=== PATIENT | male | born 1980 | race Caucasian/White ===

== ENCOUNTER 2018-06-16 17:47 | Emergency (ER) | payer OTHER ==
[2018-06-16 18:06] VITALS: BP 147/90
[2018-06-16] MEDS ORDERED: HYDROCODONE/ACETAMINOPHEN 5-325 MG (6 TAB/ER DISP) PO PRN (18:32)
[2018-06-16] MEDS ORDERED: IBUPROFEN 800 MG TABLET PO ONE (18:32)
[2018-06-16] MEDS ORDERED: LIDOCAINE 5% (700 MG) TRANSDERMAL ADH..PATCH TP ONE (18:36)
--- NOTE | 2018-06-16 18:37 | ER Document Report ---
HPI - HPI Patient complains to provider of: Left upper extremity pain Onset: Other - Chronic, worse over the past month Onset/Duration: Worse Quality of pain: Sharp Pain Level: 4 Context: Patient states that he has a history of a vascular injury to the left axillary artery one year ago. Patient has had surgical repair. Patient states that he had been taking gabapentin for chronic nerve pain but ran out of the medication 1 month ago. Patient is having difficulty getting a follow-up appointment with her primary doctor due to issues with Workmen's Compensation. Patient denies any new injury. Associated Symptoms: Other - Left upper arm pain Exacerbated by: Movement Relieved by: Denies Similar symptoms previously: Yes Recently seen / treated by doctor: No - ROS ROS below otherwise negative: Yes Systems Reviewed and Negative: Yes All other systems reviewed and negative - CONSTITUTIONAL Constitutional: DENIES: Fever - NEURO Neurology: DENIES: Headache, Weakness - RESPIRATORY Respiratory: DENIES: Trouble Breathing, Coughing - GASTROINTESTINAL Gastrointestinal: DENIES: Nausea - MUSCULOSKELETAL Musculoskeletal: REPORTS: Extremity pain, Back Pain - DERM Skin Color: Normal - Call for scrapes Skin Problems: None Past Medical History - General Information source: Patient - Social History Smoking Status: Current Every Day Smoker Smoking Education Provided: Yes Frequency of alcohol use: None Drug Abuse: None Occupation: None Lives with: Family Family History: Reviewed & Not Pertinent Musculoskeletal Medical History: Reports Other - Chronic left arm pain Past Surgical History: Reports: Hx Orthopedic Surgery, Hx Vascular Surgery Vertical Provider Document - CONSTITUTIONAL Agree With Documented VS: Yes Exam Limitations: No Limitations General Appearance: WD/WN, No Apparent Distress - INFECTION CONTROL TRAVEL OUTSIDE OF THE [place]. IN LAST 30 DAYS: No - HEENT HEENT: Atraumatic, Normocephalic - NECK Neck: Normal Inspection, Supple. negative: Lymphadenopathy-Left, Lymphadenopathy-Right - RESPIRATORY Respiratory: Breath Sounds Normal, No Respiratory Distress - CARDIOVASCULAR Cardiovascular: Regular Rate, Regular Rhythm Pulses: Normal: Radial - BACK Back: Abnormal Inspection - Left trapezius muscle tenderness with spasm - MUSCULOSKELETAL/EXTREMETIES Musculoskeletal/Extremeties: MAEW - NEURO Level of Consciousness: Awake, Alert, Appropriate Motor/Sensory: No Motor Deficit - DERM Integumentary: Warm, Dry, No Rash Course - Re-evaluation Re-evalutation: 06/16/18 18:[address] Ring regarding patient presentation and diagnostic evaluation. No additional imaging advised. Recommends treating pain symptoms. Patient with good radial pulse to left upper extremity. Normal skin color and temperature to extremity, no concern for any vascular compromise. Patient with increased pain once he raises his left upper extremity above his head. Patient able to lift arm to 90 without difficulty. - Vital Signs Vital signs: Temp Pulse Resp BP Pulse Ox 99.2 F 59 L 16 147/90 H 99 06/16/18 18:05 06/16/18 18:05 06/16/18 18:05 06/16/18 18:05 06/16/18 18:05 Discharge - Discharge Clinical Impression: Chronic pain Qualifiers: Chronic pain type: other chronic pain Qualified Code(s): G89.29 - Other chronic pain Trapezius strain Qualifiers: Encounter type: initial encounter Laterality: left Qualified Code(s): S46.812A - Strain of other muscles, fascia and tendons at shoulder and upper arm level, left arm, initial encounter Condition: Stable Disposition: HOME, SELF-CARE Instructions: Chronic Pain Control ([facility]), Muscle Strain ([facility]) Additional Instructions: Return immediately for any new or worsening symptoms Followup with your primary care provider, call tomorrow to make a followup appointment Prescriptions: Gabapentin 300 mg PO TID #20 capsule Naproxen [Naprosyn 250 Nmg Tablet] 1 tab PO BID #14 tablet Forms: Smoking Cessation Education Referrals: [facility] [Provider Group] - Follow up as needed
== END 2018-06-16 18:56 | disposition home or self-care (01) ==
LOC: ER 17:47
DX: S46.812A Strain of other muscles, fascia and tendons at shoulder and upper arm level, left arm, initial encounter (principal); X58.XXXA Exposure to other specified factors, initial encounter; G89.29 Other chronic pain; M79.622 Pain in left upper arm; M54.9 Dorsalgia, unspecified; F17.200 Nicotine dependence, unspecified, uncomplicated
CPT/HCPCS: 99283

== ENCOUNTER 2018-08-19 03:44 | Emergency (ER) | payer SELFPAY ==
[2018-08-19 03:49] VITALS: BP 162/98
[2018-08-19] MEDS ORDERED: KETOROLAC TROMETHAMINE 60 MG/2 ML SDV IM ONE (03:58)
--- NOTE | 2018-08-19 03:58 | ER Document Report ---
HPI - HPI Patient complains to provider of: Toothache Pain Level: 5 Context: Patient is a 37 mL presenting to the emergency room department complaining of a right upper tooth pain. Patient states the pain started a few hours ago. Patient states he has not taken any medication prior to arrival to relieve the pain. Patient states that is been over 20 years since he has seen a dentist. Patient denies any fever, chest pain, shortness of breath, nausea, vomiting, diarrhea. Past medical history: None Medications: None Allergies: None Patient admits to everyday cigarette use, occasional EtOH use, denies illicit drug use. Past Medical History - General Information source: Patient - Social History Smoking Status: Current Every Day Smoker Chew tobacco use (# tins/day): No Frequency of alcohol use: Occasional Drug Abuse: None Lives with: Family Family History: Reviewed & Not Pertinent Patient has suicidal ideation: No Patient has homicidal ideation: No Renal/ Medical History: Denies: Hx Peritoneal Dialysis Past Surgical History: Reports: Hx Orthopedic Surgery - back, Hx Vascular Surgery - l arm artery Vertical Provider Document - CONSTITUTIONAL Notes: GENERAL: Alert, interacts well. No acute distress. HEAD: Normocephalic, atraumatic. EYES: Pupils equal, round, and reactive to light. Extraocular movements intact. ENT: Oral mucosa moist, tongue midline. Obvious dental caries right upper teeth #1 and 2. No surrounding, erythema, fluctuance, induration. NECK: Full range of motion. Supple. Trachea midline. LUNGS: Clear to auscultation bilaterally, no wheezes, rales, or rhonchi. No respiratory distress. HEART: Regular rate and rhythm. No murmur ABDOMEN: Soft, non-tender. Non-distended. Bowel sounds present in all 4 quadrants. EXTREMITIES: Moves all 4 extremities spontaneously. No edema, normal radial and dorsalis pedis pulses bilaterally. No cyanosis. BACK: no cervical, thoracic, lumbar midline tenderness. No saddle anesthesia, normal distal neurovascular exam. NEUROLOGICAL: Alert and oriented x3. Normal speech. cranial nerves II through XII grossly intact. PSYCH: Normal affect, normal mood. SKIN: Warm, dry, normal turgor. No rashes or lesions noted. - INFECTION CONTROL TRAVEL OUTSIDE OF THE [place]. IN LAST 30 DAYS: No Course - Re-evaluation Re-evalutation: 08/19/18 03:57 We will treat patient with oral antibiotics and give phone numbers for dental clinic. Return precautions given. - Vital Signs Vital signs: Temp Pulse Resp BP Pulse Ox 97.8 F 54 L 162/98 H 99 08/19/18 03:45 08/19/18 03:45 08/19/18 03:45 08/19/18 03:45 Discharge - Discharge Clinical Impression: Toothache, Dental caries Condition: Stable Disposition: HOME, SELF-CARE Instructions: [facility], Penicillin V K ([facility]), Toothache ([facility]) Prescriptions: Penicillin V Potassium [Penicillin Vk 500 mg Tablet] 500 mg PO BID #20 tablet
== END 2018-08-19 04:20 | disposition home or self-care (01) ==
LOC: ER 03:44
DX: K02.9 Dental caries, unspecified (principal); K08.89 Other specified disorders of teeth and supporting structures; F17.210 Nicotine dependence, cigarettes, uncomplicated
CPT/HCPCS: 99282; 96372; J1885

== ENCOUNTER 2018-10-20 23:21 | Emergency (ER) | payer MEDICAID ==
[2018-10-21 00:05] VITALS: BP 150/74
== END 2018-10-21 01:18 | disposition left against medical advice (07) ==
LOC: ER 23:21
DX: Z53.21 Procedure and treatment not carried out due to patient leaving prior to being seen by health care provider (principal)

== ENCOUNTER 2018-10-23 15:57 | Emergency (ER) | payer MEDICAID ==
[2018-10-23 16:08] VITALS: BP 151/87
[2018-10-23] MEDS ORDERED: LIDOCAINE 2% VISCOUS SOLN 20 ML UDCUP PO ONE (16:43)
[2018-10-23] MEDS ORDERED: IBUPROFEN 600 MG TABLET PO ONE (16:43)
[2018-10-23] MEDS ORDERED: PENICILLIN V POTASSIUM 500 MG TABLET PO ONE (16:43)
--- NOTE | 2018-10-23 16:49 | ER Document Report ---
ED Oral Problem - General Chief Complaint: Toothache Stated Complaint: TOOTHACHE Time Seen by Provider: 10/23/18 16:26 Mode of Arrival: Ambulatory Information source: Patient Notes: 38-year-old male presented to ED for complaint of dental pain for 3 or 4 days. He states the tooth has been broken for more than a year. Patient states he took 3 Aleve this morning with little improvement. Patient is alert and nonlabored speaking in full sentences. Patient states he does smoke but has decreased the amount of cigarettes he smokes a day because of the pain that the smoking causes. Patient was instructed concerning the fact that he should not smoke at all while caring for a dental cavity. TRAVEL OUTSIDE OF THE [place] IN LAST 30 DAYS: No - HPI Patient complains to provider of: Toothache Onset: Other - 3-4 days Onset: Gradual Quality of pain: Throbbing Severity: Severe Pain Level: 5 Associated symptoms: Toothache Worsened by: Other - Smoking Relieved by: Nothing Similar symptoms previously: Yes Recently seen / treated by doctor/dentist: No - Related Data Allergies/Adverse Reactions: No Known Allergies Allergy (Unverified 06/16/18 17:51) Past Medical History - General Information source: Patient - Social History Smoking Status: Current Every Day Smoker Cigarette use (# per day): Yes - Half pack a day Smoking Education Provided: Yes - 4 minutes Frequency of alcohol use: None Drug Abuse: None Lives with: Spouse/Significant other Family History: Reviewed & Not Pertinent, Malignancy Patient has suicidal ideation: No Patient has homicidal ideation: No - Past Medical History Cardiac Medical History: Reports: None Pulmonary Medical History: Reports: None EENT Medical History: Reports: None Neurological Medical History: Reports: None Endocrine Medical History: Reports: None Renal/ Medical History: Reports: None Malignancy Medical History: Reports None GI Medical History: Reports: None Musculoskeletal Medical History: Reports Hx Musculoskeletal Trauma Skin Medical History: Reports None Psychiatric Medical History: Reports: None Traumatic Medical History: Reports: Hx Fractures - Back and finger Infectious Medical History: Reports: None Past Surgical History: Reports: Hx Orthopedic Surgery - back, Hx Vascular Surgery - l arm artery Review of Systems - Review of Systems Constitutional: No symptoms reported EENT: Mouth pain, Dental problem Cardiovascular: No symptoms reported Respiratory: No symptoms reported Gastrointestinal: No symptoms reported Genitourinary: No symptoms reported Male Genitourinary: No symptoms reported Musculoskeletal: No symptoms reported Skin: No symptoms reported Hematologic/Lymphatic: No symptoms reported Neurological/Psychological: No symptoms reported -: Yes All other systems reviewed and negative Physical Exam - Vital signs Vitals: Temp Pulse Resp BP Pulse Ox 98.7 F 64 18 151/87 H 95 10/23/18 16:06 10/23/18 16:06 10/23/18 16:06 10/23/18 16:06 10/23/18 16:06 Interpretation: Normal - General General appearance: Appears well, Alert - HEENT Head: Normocephalic, Atraumatic Eyes: Normal Pupils: PERRL Ears: Normal External canal: Normal Tympanic membrane: Normal Sinus: Normal Nasal: Normal Mouth/Lips: Caries Teeth diagram: 1 - Has been broken off for more than a year. Pain started 4 days ago. Patient does have mild swelling and redness of surrounding the tooth. Pharynx: Normal Neck: Normal - Respiratory Respiratory status: No respiratory distress Chest status: Nontender Breath sounds: Normal Chest palpation: Normal - Cardiovascular Rhythm: Regular Heart sounds: Normal auscultation Murmur: No - Abdominal Inspection: Normal Distension: No distension Bowel sounds: Normal Tenderness: Nontender Organomegaly: No organomegaly - Back Back: Normal, Nontender - Extremities General upper extremity: Normal inspection, Nontender, Normal color, Normal ROM, Normal temperature General lower extremity: Normal inspection, Nontender, Normal color, Normal ROM, Normal temperature, Normal weight bearing. No: Jarvis's sign - Neurological Neuro grossly intact: Yes Cognition: Normal Orientation: AAOx4 Jami Coma Scale Eye Opening: Spontaneous Jami Coma Scale Verbal: Oriented [place] Coma Scale Motor: Obeys Commands Jami Coma Scale Total: 15 Speech: Normal Motor strength normal: LUE, RUE, LLE, RLE Sensory: Normal - Psychological Associated symptoms: Normal affect, Normal mood - Skin Skin Temperature: Warm Skin Moisture: Dry Skin Color: Normal Course - Re-evaluation Re-evalutation: 10/23/18 16:55 Patient was treated with penicillin ibuprofen and viscous lidocaine. Presentation is most consistent with likely an infected tooth. Airway is patent. Vitals within normal limits. Patient is able swallow without any difficulty. There is no significant facial swelling. No evidence of Jeremy angina, apical abscess, or airway obstruction. Patient will be started on antibiotics. I've instructed to follow-up with dentistry as earliest ability for definitive management. At this time will discharge with return precautions and follow-up recommendations. Verbal discharge instructions given a the bedside and opportunity for questions given. Medication warnings reviewed. Patient is in agreement with this plan and has verbalized understanding of return precautions and the need for primary care follow-up in the next 24-72 hours. - Vital Signs Vital signs: Temp Pulse Resp BP Pulse Ox 98.7 F 64 18 151/87 H 95 10/23/18 16:06 10/23/18 16:06 10/23/18 16:06 10/23/18 16:06 10/23/18 16:06 Discharge - Discharge Clinical Impression: Pain due to dental caries Condition: Stable Disposition: HOME, SELF-CARE Additional Instructions: TOOTHACHE: Your pain is due to dental decay. The tooth must be repaired in order for you to feel better. You will, therefore, be referred to a dentist. We do not have dentists on the staff at [facility]. Severe swelling or drainage around a tooth usually means a dental abscess. This also requires evaluation and treatment by the dentist, but antibiotics may be prescribed while awaiting dental treatment. You should be rechecked immediately if you develop major swelling of the face, increasing pain, a lump in the jaw or gums, headache, difficulty swallowing, or fever. PENICILLIN V K: You have been given a prescription for Penicillin VK. Your physician has determined that this is the best antibiotic for your condition. Pen VK can be taken with meals, however more of the antibiotic gets into the bloodstream if it's taken on an empty stomach. Penicillin usually has no side effects. However, allergy to penicillins is common. If you have had an allergic reaction to any drug of the penicillin family, you should never take any other penicillin. Notify your doctor at once if you develop hives, itching, swelling, faintness, or shortness of breath. You have been given a syringe of viscous lidocaine. Please place a small amount on your finger and apply it to the gums and tooth. Do not use any more often than every 3 hours. SMOKING: If you smoke, you should stop smoking. The tar and chemicals in cigarette smoke are harmful. Smoking has been shown to cause: emphysema chronic bronchitis lung cancer mouth and throat cancer stomach and pancreas cancer premature aging defects In addition, smoking increases ear and lung infections in children of smokers. FOLLOW-UP CARE: You have been referred for follow-up care to the dentists listed below. Call the dentists office for an appointment as you were instructed or within the next two days. If you experience worsening or a significant change in your symptoms, notify the physician immediately or return to the Emergency Department at any time for re-evaluation. [facility] [address] [place], [place] [facility] [address] [place] [address] [facility] [address] [facility] [address] [facility] [address] [email or web address] [address] [place] [address] Saturday- 8:00am to 5:00 pm Will see patients from other [facility]. Charges based on income and family size and accepts Medicare, Medicaid, and Insurances Will pull molars [facility] [address] Hours of Operation 8:00 am - 4:30 pm weekdays The following dental offices accept Medicaid: [facility] Dr. Davidson Dr. Garcia Dr. Foster Dr. Carrillo Augustin Venegas Lutsavage, and [facility] oral surgery Dr. Casey ([place]) Dr. Katz ([place]) [facility] Drs. Wright ([place]) Dr. Gibson ([place]) [facility] Dr. Cha ([place]) Drs. Orellana and ([place]) Medicaid Care Line Prescriptions: Penicillin V Potassium [Penicillin Vk 500 mg Tablet] 500 mg PO BID #20 tablet Forms: Elevated Blood Pressure, Smoking Cessation Education, Return to Work
== END 2018-10-23 17:00 | disposition home or self-care (01) ==
LOC: ER 15:57
DX: K02.9 Dental caries, unspecified (principal); F17.210 Nicotine dependence, cigarettes, uncomplicated
CPT/HCPCS: 99406; 99283; J3490 ×3

== ENCOUNTER 2019-02-23 18:40 | Emergency (ER) | payer MEDICAID ==
--- NOTE | 2019-02-23 20:24 | RADIOLOGY REPORT (SQ) ---
EXAM DESCRIPTION: XR FOOT 3 OR MORE VIEWS COMPLETED DATE/TME: 02/23/2019 19:34 CLINICAL HISTORY: 38 years, Male, toe pain COMPARISON: None. NUMBER OF VIEWS: Three TECHNIQUE: Frontal, oblique, and lateral radiographs of the right foot were obtained. LIMITATIONS: None. FINDINGS: Visualized is a comminuted fracture involving the first distal phalanx. The fracture plane extends into the first interphalangeal joint. Associated adjacent soft tissue swelling is noted. No additional osseous anomalies are appreciated. IMPRESSION: Comminuted intra-articular fracture involving the first distal phalanx. Adjacent soft tissue swelling. copyright 2010 [employer]- All Rights Reserved
[2019-02-23] MEDS ORDERED: OXYCODONE-ACETAMINOPHEN 5-325 MG TABLET PO ONE (22:03)
[2019-02-23] MEDS ORDERED: CEPHALEXIN 500 MG CAPSULE PO ONE (22:35)
--- NOTE | 2019-02-23 22:35 | ER Document Report ---
ED Extremity Problem, Lower - General Chief Complaint: Toe Injury Stated Complaint: RIGHT FOOT PAIN Time Seen by Provider: 02/23/19 21:36 TRAVEL OUTSIDE OF THE U.S. IN LAST 30 DAYS: No - HPI Notes: Patient is a 38-year-old male who presents to the emergency department with a chief complaint of right great toe pain. Patient states that yesterday around noon he dropped a brick on his right foot. He was wearing a tennis shoe during the injury. Patient was seen in one of [facility] and diagnosed with a fracture, placed on pain medications, given a walking boot, and was told to follow-up with Ortho. Patient did call [facility] in [place] and has a follow-up appointment this . He reports that when he called to make the appointment he told them that his toe was still bleeding and they directed him to come to the emergency department. Patient has been taking Amawalk for pain, last dose was around 10 AM this morning. Patient has used dried gauze to wrap around toe due to oozing of blood. She states that his tetanus shot is up-to-date within the past 5 years. - Related Data Allergies/Adverse Reactions: No Known Allergies Allergy (Verified 02/23/19 18:47) Past Medical History - General Information source: Patient - Social History Smoking Status: Unknown if Ever Smoked Cigarette use (# per day): No Chew tobacco use (# tins/day): No Family History: Reviewed & Not Pertinent, Malignancy - Past Medical History Cardiac Medical History: Reports: None Pulmonary Medical History: Reports: None EENT Medical History: Reports: None Neurological Medical History: Reports: None Endocrine Medical History: Reports: None Renal/ Medical History: Reports: None. Denies: Hx Peritoneal Dialysis Malignancy Medical History: Reports None GI Medical History: Reports: None Musculoskeletal Medical History: Reports Hx Musculoskeletal Trauma Skin Medical History: Reports None Psychiatric Medical History: Reports: None Traumatic Medical History: Reports: Hx Fractures - Back and finger Infectious Medical History: Reports: None Past Surgical History: Reports: Hx Orthopedic Surgery - back, Hx Vascular Surgery - l arm artery - Immunizations Immunizations up to date: Yes Review of Systems - Review of Systems Constitutional: No symptoms reported EENT: No symptoms reported Cardiovascular: No symptoms reported Respiratory: No symptoms reported Gastrointestinal: No symptoms reported Genitourinary: No symptoms reported Male Genitourinary: No symptoms reported Musculoskeletal: No symptoms reported Skin: See HPI Hematologic/Lymphatic: No symptoms reported Neurological/Psychological: No symptoms reported Physical Exam - Vital signs Vitals: Temp Pulse Resp BP Pulse Ox 97.8 F 69 14 133/74 H 99 02/23/19 19:13 02/23/19 19:13 02/23/19 19:13 02/23/19 19:13 02/23/19 19:13 - Notes Notes: GENERAL: Well-appearing, well-nourished and in no acute distress. HEAD: Atraumatic, normocephalic. EYES: Pupils equal round and reactive to light, extraocular movements intact, sclera anicteric, conjunctiva are normal. ENT: TMs normal, nares patent, oropharynx clear without exudates. Moist mucous membranes. NECK: Normal range of motion, supple without lymphadenopathy or JVD. LUNGS: Breath sounds clear to auscultation bilaterally and equal. No wheezes rales or rhonchi. HEART: Regular rate and rhythm without murmurs, rubs or gallops. ABDOMEN: Soft, nontender, normoactive bowel sounds. No guarding, no rebound. No masses appreciated. EXTREMITIES: Normal range of motion, no pitting or edema. No clubbing or cyanosis. NEUROLOGICAL: Cranial nerves II through XII grossly intact. Normal speech, normal gait. PSYCH: Normal mood, normal affect. SKIN: Significant swelling and bruising to right great toe, toe nail deformed but remains intact with dried blood underneath. Skin is warm and pink, + strong pedal pulses. Very small skin tear on the right side of the great toe where it appears the oozing is coming from. No active bleeding visible from toenail. Course - Re-evaluation Re-evalutation: 02/24/19 Patient medicated for pain. Xeroform gauze and Sonido dressing to be applied by nursing staff to control small oozing from the side of the big toe. Patient to continue to use hard walking boot. Due to risk of infection patient placed on Keflex. Patient does have a follow-up this with [facility] in [place]. Patient provided with return precautions. Patient and in agreement with discharge plan. - Vital Signs Vital signs: Temp Pulse Resp BP Pulse Ox 98.1 F 72 16 132/68 H 98 02/23/19 22:55 02/23/19 22:55 02/23/19 22:55 02/23/19 22:55 02/23/19 22:55 - Diagnostic Test Radiology reviewed: Image reviewed, Reports reviewed Radiology results interpreted by me: 02/24/19 X-ray showed a comminuted intra-articular fracture involving the first distal phalanx. Adjacent soft tissue swelling. No dislocation or open fracture noted. Discharge - Discharge Clinical Impression: Toe injury Qualifiers: Encounter type: subsequent encounter Laterality: right Qualified Code(s): S99.921D - Unspecified injury of right foot, subsequent encounter Condition: Stable Disposition: HOME, SELF-CARE Additional Instructions: Today you were seen in the emergency department for continued toe pain and bleeding. It appears that the bleeding is coming from the side of your toe that you do not have an open fracture. No sutures are indicated at this time due to size of cut and length of time after injury. We will place you on Keflex which is an antibiotic for 5 days. Start this tomorrow as we are giving you your first dose tonight in the emergency department he has been placed with a large bulky dressing to the toe. Please keep this dry and intact until your follow-up appointment with [facility] or so on . May expect some swelling and bruising to the foot. Continue to use the walking boot that was given to you yesterday at [facility]. Continue your Amawalk prescription for pain. Please return to the emergency department for worsening of symptoms or bleeding through dressing. Prescriptions: Cephalexin Monohydrate [Keflex 500 mg Capsule] 500 mg PO Q6H 5 Days #20 capsule
[2019-02-23 23:40] VITALS: BP 132/68
== END 2019-02-23 22:55 | disposition home or self-care (01) ==
LOC: ER 18:40
DX: S92.421A Displaced fracture of distal phalanx of right great toe, initial encounter for closed fracture (principal); S91.111A Laceration without foreign body of right great toe without damage to nail, initial encounter; W20.8XXA Other cause of strike by thrown, projected or falling object, initial encounter
CPT/HCPCS: 99283

== ENCOUNTER 2019-08-28 12:46 | Emergency (ER) | payer MEDICAID ==
[2019-08-28] MEDS ORDERED: ASPIRIN 81 MG TABLET, CHEWABLE PO ONE (12:52)
[2019-08-28 13:38] LABS: ABSOLUTE EOSINOPHILS # (AUTO) 0.1 10^3/uL (0.0-0.6); ABSOLUTE LYMPHOCYTES (AUTO) 2.1 10^3/uL (0.5-4.7); ABSOLUTE MONOCYTES (AUTO) 0.3 10^3/uL (0.1-1.4); ABSOLUTE NEUT (AUTO) 6.5 10^3/uL (1.7-8.2); BASOPHILS % (AUTO) 0.4 % (0-2); EOSINOPHILS % (AUTO) 0.6 % (0-6); HEMATOCRIT 50.7 % (37.9-51.0); HEMOGLOBIN 17.7 g/dL (13.5-17.0); LYMPHOCYTES % (AUTO) 23.4 % (13-45); MEAN CORPUSCULAR HEMOGLOBIN 32.5 pg (27.0-33.4); MEAN CORPUSCULAR HGB CONC 34.9 g/dL (32.0-36.0); MEAN CORPUSCULAR VOLUME 93 fl (80-97); MONOCYTES % (AUTO) 3.5 % (3-13); PLATELET COUNT 195 10^3/uL (150-450); RED BLOOD COUNT 5.44 10^6/uL (4.35-5.55); SEGMENTED NEUTROPHILS % (AUTO) 72.1 % (42-78); TOTAL CELLS COUNTED % (AUTO) 100 %; WHITE BLOOD COUNT 9.1 10^3/uL (4.0-10.5)
[2019-08-28 13:52] LABS: INTERNATIONAL RATION (INR) 0.97; PROTHROMBIN TIME 12.9 SEC (11.4-15.4)
--- NOTE | 2019-08-28 14:21 | ER Document Report ---
ED General - General Chief Complaint: Blood Pressure Problem Stated Complaint: BLOOD PRESSURE CONCERNS Time Seen by Provider: 08/28/19 13:42 Primary Care Provider: LISANDRA WORTHINGTON MD [Primary Care Provider] - Follow up as needed TRAVEL OUTSIDE OF THE [place] IN LAST 30 DAYS: No - HPI Notes: Patient is a 38-year-old male who presents to the emergency department for evaluation. He really cannot tell me exactly what is wrong, but he states "I just do not feel right." He states that it feels like his chest is "emptying." He does complain of some intermittent facial "twitching." He states his fingertips and feet felt numb intermittently. He did report that he has been u nder increased stress. He had a significant work-related accident a few days ago, has been unable to work. He has chronic pain as a result. He states he is having difficulty getting Worker's Compensation to help, this is an extreme amount of stress on him at this time. He went to see his doctor earlier today, his blood pressure was found to be markedly elevated. He bought a cuff to check it at home, noted that it was elevated there as well. He comes to the ED for further evaluation. - Related Data Allergies/Adverse Reactions: No Known Allergies Allergy (Verified 02/23/19 18:47) Home Medications: Unknown acid reflux medication, patient unsure of name or dose Past Medical History - General Information source: Patient - Social History Smoking Status: Current Every Day Smoker Frequency of alcohol use: None Drug Abuse: None Family History: Reviewed & Not Pertinent, Malignancy Patient has suicidal ideation: No Patient has homicidal ideation: No Renal/ Medical History: Denies: Hx Peritoneal Dialysis GI Medical History: Reports: Hx Gastroesophageal Reflux Disease Musculoskeletal Medical History: Reports Hx Musculoskeletal Trauma Traumatic Medical History: Reports: Hx Fractures - Back and finger Past Surgical History: Reports: Hx Orthopedic Surgery - back, right knee, left arm surgery, Hx Vascular Surgery - l arm artery - Immunizations Immunizations up to date: Yes Review of Systems - Review of Systems Constitutional: No symptoms reported EENT: No symptoms reported Cardiovascular: See HPI Respiratory: No symptoms reported Gastrointestinal: No symptoms reported Genitourinary: No symptoms reported Musculoskeletal: No symptoms reported Skin: No symptoms reported Neurological/Psychological: See HPI Physical Exam - Vital signs Vitals: Temp Pulse Resp BP Pulse Ox 98.3 F 136 H 20 198/129 H 97 08/28/19 12:49 08/28/19 12:49 08/28/19 12:49 08/28/19 12:49 08/28/19 12:49 - Notes Notes: Vital signs reviewed, please refer to chart. Head is normocephalic, atraumatic. Pupils equal round, reactive to light. Neck is supple without meningismus. Heart is regular rate and rhythm. Lungs are clear to auscultation bilaterally. Abdomen is soft, nontender, normoactive bowel sounds throughout. Extremities without cyanosis, clubbing. Posterior calves are nontender. Peripheral pulses are equal. Skin is warm and dry. Patient is awake, alert, oriented x3. Cranial nerves II - XII are grossly intact without focal neurological deficits. Strength is plus 5 out of 5 bilateral upper and lower extremities. Sensation is intact. Reflexes symmetrical. Intact [id number], rapid alternating movements, [id number]. Course - Re-evaluation Re-evalutation: 08/28/19 14:20 Patient presents emergency department for evaluation. His symptoms are very vague. He is moderately hypertensive upon arrival. His complaints seem most consistent with anxiety. The patient is encouraged to quit smoking, he states he is endeavoring to do so at this time. His blood pressure was elevated, he is keeping an eye on his blood pressure as per his primary care physician's recommendations. I told him to keep a daily record, bring this with him to a doctor's appointment next week. At this point, patient has no chest pain. Laboratory investigations are pending, we will continue to monitor. 08/28/19 15:58 Laboratory investigations unremarkable. Patient is stable. He is to continue to follow his blood pressure, follow-up with primary care. Return to the ED with worsening or new concerning symptoms of any sort. - Vital Signs Vital signs: Temp Pulse Resp BP Pulse Ox 98.3 F 136 H 20 198/129 H 100 08/28/19 12:49 08/28/19 12:49 08/28/19 12:49 08/28/19 12:49 08/28/19 13:19 - Laboratory Result Diagrams: 08/28/19 13:20 08/28/19 13:20 Laboratory results interpreted by me: 08/28/19 08/28/19 13:20 13:20 Hgb 17.7 H Calcium 10.3 H - EKG Interpretation by Me Additional EKG results interpreted by me: 08/28/19 15:59 Sinus mechanism with rate of 76 bpm. Left axis deviation. Nonspecific ST changes, but no acute changes concerning for ischemia or infarction. Discharge - Discharge Clinical Impression: Numbness and tingling Chest pain Qualifiers: Chest pain type: unspecified Qualified Code(s): R07.9 - Chest pain, unspecified Hypertension Qualifiers: Hypertension type: unspecified Qualified Code(s): I10 - Essential (primary) hypertension Condition: Stable Disposition: HOME, SELF-CARE Instructions: High Blood Pressure ([facility]), Anxiety ([facility]) Additional Instructions: Continue to track your blood pressure closely. Bring these records with you to another appointment with your doctor in 1 to 2 weeks. Continue your efforts to quit smoking. Return to the emergency department with worsening or new concerning symptoms of any sort. Referrals: LISANDRA WORTHINGTON MD [Primary Care Provider] - Follow up as needed
[2019-08-28 14:23] LABS: CREATINE KINASE MB 0.74 ng/mL (<4.55)
[2019-08-28 14:40] LABS: TROPONIN I < 0.012 ng/mL
[2019-08-28 15:45] LABS: ALBUMIN 4.7 g/dL (3.5-5.0); ALKALINE PHOSPHATASE 74 U/L (38-126); ANION GAP 11 (5-19); ASPARTATE AMINO TRANSFERASE 35 U/L (17-59); BILIRUBIN,DIRECT 0.2 mg/dL (0.0-0.4); BILIRUBIN,TOTAL 0.5 mg/dL (0.2-1.3); BLOOD UREA NITROGEN 15 mg/dL (7-20); CALCIUM 10.3 mg/dL (8.4-10.2); CARBON DIOXIDE 24 mmol/L (22-30); CHLORIDE 104 mmol/L (98-107); CREATINE KINASE 138 U/L (55-170); GLUCOSE 103 mg/dL (75-110); POTASSIUM 4.4 mmol/L (3.6-5.0); TOTAL PROTEIN 8.2 g/dL (6.3-8.2)
[2019-08-28 16:05] VITALS: BP 136/88
--- NOTE | 2019-08-28 19:07 | EKG REPORT ---
SEVERITY:- ABNORMAL ECG - SINUS RHYTHM INCOMPLETE RBBB AND LAFB : Confirmed by: Alfreda Peter MD 28-Aug-2019 19:07:18
== END 2019-08-28 16:33 | disposition home or self-care (01) ==
LOC: ER 12:46
DX: I10 Essential (primary) hypertension (principal); R07.9 Chest pain, unspecified; R20.0 Anesthesia of skin; R20.2 Paresthesia of skin; R25.3 Fasciculation; F43.9 Reaction to severe stress, unspecified; K21.9 Gastro-esophageal reflux disease without esophagitis; Z79.899 Other long term (current) drug therapy; F17.200 Nicotine dependence, unspecified, uncomplicated
CPT/HCPCS: 36415; 80053; 82550; 82553; 84484; 85025; 85610; 93005; 93010; 99284

== ENCOUNTER 2019-09-25 08:36 | Emergency (ER) | payer MEDICAID ==
[2019-09-25] MEDS ORDERED: HYDROCODONE/ACETAMINOPHEN 5-325 MG TABLET PO ONE (09:31)
[2019-09-25] MEDS ORDERED: ASPIRIN 81 MG TABLET, CHEWABLE PO ONE (09:31)
[2019-09-25 09:41] LABS: ABSOLUTE EOSINOPHILS # (AUTO) 0.2 10^3/uL (0.0-0.6); ABSOLUTE LYMPHOCYTES (AUTO) 3.9 10^3/uL (0.5-4.7); ABSOLUTE MONOCYTES (AUTO) 0.8 10^3/uL (0.1-1.4); ABSOLUTE NEUT (AUTO) 5.4 10^3/uL (1.7-8.2); BASOPHILS % (AUTO) 0.4 % (0-2); EOSINOPHILS % (AUTO) 2.4 % (0-6); HEMATOCRIT 49.2 % (37.9-51.0); HEMOGLOBIN 17.4 g/dL (13.5-17.0); LYMPHOCYTES % (AUTO) 37.5 % (13-45); MEAN CORPUSCULAR HEMOGLOBIN 33.1 pg (27.0-33.4); MEAN CORPUSCULAR HGB CONC 35.4 g/dL (32.0-36.0); MEAN CORPUSCULAR VOLUME 94 fl (80-97); MONOCYTES % (AUTO) 7.5 % (3-13); PLATELET COUNT 198 10^3/uL (150-450); RED BLOOD COUNT 5.26 10^6/uL (4.35-5.55); RED CELL DISTRIBUTION WIDTH 12.9 % (11.5-14.0); SEGMENTED NEUTROPHILS % (AUTO) 52.2 % (42-78); TOTAL CELLS COUNTED % (AUTO) 100 %; WHITE BLOOD COUNT 10.3 10^3/uL (4.0-10.5)
--- NOTE | 2019-09-25 09:51 | RADIOLOGY REPORT (SQ) ---
EXAM DESCRIPTION: CHEST 2 VIEWS COMPLETED DATE/TIME: 09/25/2019 9:38 am REASON FOR STUDY: chest pain COMPARISON: None. EXAM PARAMETERS: NUMBER OF VIEWS: two views TECHNIQUE: Digital Frontal and Lateral radiographic views of the chest acquired. RADIATION DOSE: NA LIMITATIONS: none FINDINGS: LUNGS AND PLEURA: No consolidation, pleural effusion or pneumothorax. MEDIASTINUM AND HILAR STRUCTURES: No mediastinal or hilar contour abnormality. HEART AND VASCULAR STRUCTURES: The cardiomediastinal silhouette and pulmonary vasculature are within normal limits. BONES: No acute findings. HARDWARE: None in the chest. OTHER: No other finding. IMPRESSION: No acute cardiopulmonary process. TECHNICAL DOCUMENTATION: JOB ID: [id number] [employer]- All Rights Reserved Reading location - IP/workstation name: [email or web address]
[2019-09-25 10:10] LABS: ALBUMIN 4.7 g/dL (3.5-5.0); ALKALINE PHOSPHATASE 75 U/L (38-126); ANION GAP 7 (5-19); ASPARTATE AMINO TRANSFERASE 41 U/L (17-59); BILIRUBIN,DIRECT 0.2 mg/dL (0.0-0.4); BILIRUBIN,TOTAL 0.6 mg/dL (0.2-1.3); BLOOD UREA NITROGEN 14 mg/dL (7-20); CALCIUM 10.2 mg/dL (8.4-10.2); CARBON DIOXIDE 28 mmol/L (22-30); CHLORIDE 104 mmol/L (98-107); GLUCOSE 99 mg/dL (75-110); POTASSIUM 4.2 mmol/L (3.6-5.0); TOTAL PROTEIN 7.9 g/dL (6.3-8.2)
--- NOTE | 2019-09-25 10:26 | ER Document Report ---
ED General - General Chief Complaint: Chest Pain Stated Complaint: CHEST PAIN Time Seen by Provider: 09/25/19 09:11 Primary Care Provider: LISANDRA WORTHINGTON MD [Primary Care Provider] - Follow up in 1 week TRAVEL OUTSIDE OF THE [place] IN LAST 30 DAYS: No - HPI Notes: 39-year-old male to the emergency department with complaints of left-sided chest pain that started about 1 week ago and is been constant and getting worse. He states that he occasionally feels a little short of breath with it. He denies any nausea or vomiting, radiation of pain, diaphoresis. He does smoke. He does have high blood pressure. He states that there is family history of heart attacks. He denies any leg swelling or calf pain. He denies any recent travel. He does not have a history of DVT. He denies any fevers or chills. He denies any cough. He does state that his pain gets worse with big deep breath and with palpation of the chest. He denies any recent injuries or blunt trauma. He states that his blood pressure has not been well controlled lately and was just changed on to new medicines on 21 September. He states that he cannot recall what they are. He has never had a heart attack. He does not use cocaine. - Related Data Allergies/Adverse Reactions: No Known Allergies Allergy (Verified 02/23/19 18:47) Past Medical History - General Information source: Patient - Social History Smoking Status: Current Every Day Smoker Frequency of alcohol use: None Drug Abuse: None. denies: Cocaine Family History: CAD, Malignancy Patient has suicidal ideation: No Patient has homicidal ideation: No - Past Medical History Cardiac Medical History: Reports: Hx Hypertension Renal/ Medical History: Denies: Hx Peritoneal Dialysis GI Medical History: Reports: Hx Gastroesophageal Reflux Disease Musculoskeletal Medical History: Reports Hx Musculoskeletal Trauma Traumatic Medical History: Reports: Hx Fractures - Back and finger Past Surgical History: Reports: Hx Appendectomy, Hx Orthopedic Surgery - back, right knee, left arm surgery, Hx Vascular Surgery - l arm artery - Immunizations Immunizations up to date: Yes Review of Systems - Review of Systems Constitutional: denies: Chills, Diaphoresis, Fever EENT: No symptoms reported Cardiovascular: Chest pain. denies: Palpitations, Syncope, Dizziness, Lightheaded Respiratory: Short of breath. denies: Cough, Wheezing Gastrointestinal: denies: Abdominal pain, Diarrhea, Nausea, Vomiting Musculoskeletal: No symptoms reported Skin: No symptoms reported Hematologic/Lymphatic: No symptoms reported Neurological/Psychological: No symptoms reported -: Yes All other systems reviewed and negative Physical Exam - Vital signs Vitals: Temp Pulse Resp BP Pulse Ox 98.0 F 80 18 174/99 H 100 09/25/19 08:48 09/25/19 08:48 09/25/19 08:48 09/25/19 08:48 09/25/19 08:48 Interpretation: Normal - General General appearance: Appears well, Alert In distress: Mild Notes: mild pain discomfort -- patient winces every time he takes a breath - HEENT Head: Normocephalic, Atraumatic Eyes: Normal Pupils: PERRL - Respiratory Respiratory status: No respiratory distress Chest status: Tender - there is TTP over the left chest wall without crepitus or step off, Pain on movement, Pain with cough, Pain with deep breathing. No: Accessory muscle use Breath sounds: Normal. No: Rales, Rhonchi, Stridor, Wheezing Chest palpation: Normal - Cardiovascular Rhythm: Regular Heart sounds: Normal auscultation Murmur: No Notes: no pitting edema - Abdominal Inspection: Normal Distension: No distension Bowel sounds: Normal Tenderness: Nontender Organomegaly: No organomegaly - Back Back: Normal, Nontender - Extremities General upper extremity: Normal inspection, Nontender, Normal color, Normal ROM, Normal temperature General lower extremity: Normal inspection, Nontender, Normal color, Normal ROM, Normal temperature, Normal weight bearing. 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 No: Pronator drift Sensory: Normal - Psychological Associated symptoms: Normal affect, Normal mood - Skin Skin Temperature: Warm Skin Moisture: Dry Skin Color: Normal Course - Re-evaluation Re-evalutation: 09/25/19 Patient did not have significant improvement of pain -- gave Percocet for pain control. Will obtain trending Trop, obtain D Dimer. EKG reassuring and unchanging from prior. He has musculoskeletal TTP over the chest wall. XR is negative. Noted Hypertension. Will continue to monitor patient. HEART Score of 2. Patient is doing better and is resting. Repeat lab testing is negative for change in troponin. He has symptoms of predominantly MS chest wall pain. I have discussed this with him. Will have him follow with PCP in the next week. Patient agrees with the plan. - Vital Signs Vital signs: Temp Pulse Resp BP Pulse Ox 98.5 F 80 16 131/88 H 95 09/25/19 14:51 09/25/19 08:48 09/25/19 14:51 09/25/19 14:51 09/25/19 14:51 - Laboratory Result Diagrams: 09/25/19 09:00 09/25/19 09:00 Laboratory results interpreted by me: 09/25/19 09:00 Hgb 17.4 H - Diagnostic Test Radiology reviewed: Image reviewed, Reports reviewed - EKG Interpretation by Me EKG shows normal: Sinus rhythm Rate: Normal When compared to previous EKG there are: No significant change Additional EKG results interpreted by me: 09/25/19 No STEMI rate 83. Left anterior fascicular block which is unchanged from prior on 08/28/2019. There are no T wave inversions and no prolonged QT. No LVH, Discharge - Discharge Clinical Impression: Musculoskeletal chest pain, Hypertension Condition: Stable Disposition: HOME, SELF-CARE Instructions: Chest Wall Pain ([facility]) Additional Instructions: TAKE MEDICINES PRESCRIBED. RETURN IF WORSENING PAIN, SHORTNESS OF BREATH, SWEATING, OR VOMITING. FOLLOW UP WITH PRIMARY CARE NEXT WEEK WITHOUT FAIL. TAKE MEDICINES PRESCRIBED. Prescriptions: Cyclobenzaprine HCl [Flexeril 5 mg Tablet] 1 - 2 tab PO TID PRN #15 tablet PRN Reason: Oxycodone HCl/Acetaminophen [Percocet 5-325 mg Tablet] 1 tab PO Q6H PRN #10 tab PRN Reason: Forms: Smoking Cessation Education Referrals: LISANDRA WORTHINGTON MD [Primary Care Provider] - Follow up in 1 week
[2019-09-25] MEDS ORDERED: OXYCODONE-ACETAMINOPHEN 5-325 MG TABLET PO ONE (11:32)
[2019-09-25 14:56] VITALS: BP 131/88
--- NOTE | 2019-09-25 15:03 | EKG REPORT ---
SEVERITY:- ABNORMAL ECG - SINUS RHYTHM LEFT ANTERIOR FASCICULAR BLOCK : Confirmed by: Ulysses Sutton MD 25-Sep-2019 15:03:10
== END 2019-09-25 14:57 | disposition home or self-care (01) ==
LOC: ER 08:36
DX: R07.89 Other chest pain (principal); I10 Essential (primary) hypertension; I44.4 Left anterior fascicular block; R06.02 Shortness of breath; F17.200 Nicotine dependence, unspecified, uncomplicated; Z82.49 Family history of ischemic heart disease and other diseases of the circulatory system
CPT/HCPCS: 36415; 71046; 80053; 84484; 85025; 85379; 93005; 93010; 99285

== ENCOUNTER → 2019-10-22 | Outpatient (CLI) | payer MEDICAID ==
[2019-10-22 09:57] LABS: HEMATOCRIT 47.5 % (37.9-51.0); MEAN CORPUSCULAR HEMOGLOBIN 33.5 pg (27.0-33.4); MEAN CORPUSCULAR HGB CONC 35.8 g/dL (32.0-36.0); MEAN CORPUSCULAR VOLUME 94 fl (80-97); PLATELET COUNT 198 10^3/uL (150-450); RED BLOOD COUNT 5.08 10^6/uL (4.35-5.55); RED CELL DISTRIBUTION WIDTH 13.4 % (11.5-14.0); WHITE BLOOD COUNT 12.1 10^3/uL (4.0-10.5)
[2019-10-22 10:05] LABS: INTERNATIONAL RATION (INR) 0.93; PARTIAL THROMBOPLASTIN TIME 25.4 SEC (23.5-35.8); PROTHROMBIN TIME 12.5 SEC (11.4-15.4)
[2019-10-22 10:26] LABS: ALBUMIN 4.5 g/dL (3.5-5.0); ALKALINE PHOSPHATASE 65 U/L (38-126); ANION GAP 9 (5-19); ASPARTATE AMINO TRANSFERASE 26 U/L (17-59); BILIRUBIN,DIRECT 0.2 mg/dL (0.0-0.4); BILIRUBIN,TOTAL 0.5 mg/dL (0.2-1.3); BLOOD UREA NITROGEN 17 mg/dL (7-20); CALCIUM 9.4 mg/dL (8.4-10.2); CARBON DIOXIDE 28 mmol/L (22-30); CHLORIDE 105 mmol/L (98-107); CHOLESTEROL 234.47 mg/dL (0-200); GLUCOSE 85 mg/dL (75-110); POTASSIUM 4.4 mmol/L (3.6-5.0); TOTAL PROTEIN 7.5 g/dL (6.3-8.2); TRIGLYCERIDES 179 mg/dL (<150)
[2019-10-22 10:37] LABS: DIRECT LDL 160 mg/dL (<100)
[2019-10-22 10:41] LABS: VLDL CHOLESTEROL 35.8 mg/dL (10-31)
== END ==
LOC: LAB 09:36
PROVIDERS: ATTEND Internal Medicine Cardiovascular Disease
DX: Z01.810 Encounter for preprocedural cardiovascular examination (principal); R94.5 Abnormal results of liver function studies; R07.9 Chest pain, unspecified; R07.89 Other chest pain; Z79.01 Long term (current) use of anticoagulants
CPT/HCPCS: 36415; 80048; 80061; 80076; 82977; 83036; 83735; 85027; 85610; 85730

== ENCOUNTER 2020-07-05 17:47 | Emergency (ER) | payer MEDICAID ==
[2020-07-05] MEDS ORDERED: HYDROCODONE/ACETAMINOPHEN 5-325 MG TABLET PO ONE (19:30)
--- NOTE | 2020-07-05 20:23 | RADIOLOGY REPORT (SQ) ---
5 VIEWS OF CERVICAL SPINE HISTORY: Neck pain. COMPARISON: None. FINDINGS: No acute cervical fracture or prevertebral soft tissue swelling is identified. There is normal alignment without subluxation. The disc spaces are preserved. The oblique views demonstrate no high-grade bony neural foraminal narrowing. IMPRESSION: No acute cervical fracture is seen. However, please note that if there is point tenderness or high clinical concern, a CT scan is recommended.
--- NOTE | 2020-07-05 20:24 | RADIOLOGY REPORT (SQ) ---
EXAM DESCRIPTION: XR SHOULDER 2 OR MORE VIEWS COMPLETED DATE/TME: 07/05/2020 19:29 CLINICAL HISTORY: 39 years, Male, injury COMPARISON: EXAM DESCRIPTION: CLINICAL HISTORY: injury COMPARISON: None FINDINGS: 3 view(s) submitted. No fracture or dislocation is identified. Bone marrow attenuation is unremarkable. No radiopaque foreign body is identified. IMPRESSION: No acute fracture or dislocation.
--- NOTE | 2020-07-05 20:30 | RADIOLOGY REPORT (SQ) ---
EXAM DESCRIPTION: X-ray, three views of the left elbow. CLINICAL HISTORY: 39 years Male, injury COMPARISON: None. FINDINGS: Bone mineralization is normal. Alignment of the elbow is anatomic. No fracture. No erosions or periostitis. No joint effusion. Soft tissues are unremarkable. IMPRESSION: Unremarkable radiographs of the left elbow.
--- NOTE | 2020-07-05 20:31 | RADIOLOGY REPORT (SQ) ---
EXAM DESCRIPTION: X-ray, two views of the left forearm CLINICAL HISTORY: 39 years Male, injury COMPARISON: None. FINDINGS: Bone mineralization is normal. The radius and ulna are intact. Soft tissues are unremarkable. The elbow is unremarkable. On the wrist views there are several small ossific fragment seen along the volar aspect of the proximal carpal row. These are not fully evaluated. They may represent avulsion fractures or old trauma. IMPRESSION: Small ossific densities seen along the volar aspect of the wrist which are incompletely imaged. No obvious fracture of the radius or ulna.
--- NOTE | 2020-07-05 21:22 | ER Document Report ---
HPI - HPI Patient complains to provider of: fall Time Seen by Provider: 07/05/20 19:24 Pain Level: 5 Context: 39-year-old male states that he tripped over his lawnmower causing him to fall backwards and landed on his left side, also hitting the left side of his neck at home earlier this evening. He denies hitting his head. He denies any loss of consciousness. States he hit the left side of his neck, his left shoulder as well as his left arm. Patient has a history of previous trauma to both his left arm as well as his left shoulder with muscle tears. No medications prior to arrival for pain. Associated Symptoms: None Exacerbated by: Movement Relieved by: Denies Similar symptoms previously: No Recently seen / treated by doctor: No - ROS Systems Reviewed and Negative: Yes All other systems reviewed and negative - EENT Notes: Neck pain - NEURO Neurology: DENIES: Headache, Weakness - RESPIRATORY Respiratory: DENIES: Trouble Breathing - MUSCULOSKELETAL Musculoskeletal: REPORTS: Extremity pain. DENIES: Back Pain - DERM Skin Color: Normal Skin Problems: None Past Medical History - General Information source: Patient - Social History Smoking Status: Current Every Day Smoker Frequency of alcohol use: None Drug Abuse: None Family History: CAD, Malignancy Patient has homicidal ideation: No - Past Medical History Cardiac Medical History: Reports: Hx Hypertension Renal/ Medical History: Denies: Hx Peritoneal Dialysis GI Medical History: Reports: Hx Gastroesophageal Reflux Disease Musculoskeletal Medical History: Reports Hx Musculoskeletal Trauma Traumatic Medical History: Reports: Hx Fractures - Back and finger Past Surgical History: Reports: Hx Appendectomy, Hx Orthopedic Surgery - back, right knee, left arm surgery, Hx Vascular Surgery - l arm artery - Immunizations Immunizations up to date: Yes Vertical Provider Document - CONSTITUTIONAL Agree With Documented VS: Yes Exam Limitations: No Limitations General Appearance: Moderate Distress - INFECTION CONTROL TRAVEL OUTSIDE OF THE [place] IN LAST 30 DAYS: No - HEENT HEENT: Atraumatic, Normal ENT Exam, Normocephalic - NECK Neck: Normal Inspection, Supple, Thyroid Normal Notes: Cervical spine is nontender to palpation. There is painful range of motion with lateral movement to the neck. No obvious deformity noted. - RESPIRATORY Respiratory: Breath Sounds Normal, No Respiratory Distress, Chest Non-Tender - CARDIOVASCULAR Cardiovascular: Regular Rate, Regular Rhythm, No Murmur - BACK Back: Normal Inspection. negative: CVA Tenderness-Right, CVA Tenderness-Left - MUSCULOSKELETAL/EXTREMETIES Musculoskeletal/Extremeties: Tender - Tenderness on palpation to the posterior left shoulder. Tenderness over the mid upper humerus, tenderness over the left medial epicondyle. Tenderness over the left forearm. Left wrist is nontender. He has painful range of motion with abduction and adduction of the left shoulder. Painful range of motion with flexion extension of the left elbow. Full range of motion with flexion, extension and lateral movement to the left wrist without pain. No obvious deformities were palpated on the left arm or left shoulder. - NEURO Level of Consciousness: Awake, Alert, Appropriate Motor/Sensory: No Motor Deficit, No Sensory Deficit Notes: Positive left radial pulse. Capillary refill less than 3 seconds. Neurovascularly intact. - DERM Integumentary: Warm, Dry Course - Re-evaluation Re-evalutation: 07/05/20 21:32 Patient is resting comfortably minimal relief in pain. Reviewed all x-ray results with patient. He is neurovascularly intact. Patient had an accident several years ago where he did severe damage to his left upper arm. After discussing the questionable avulsion fragments of the left wrist patient does not recall having any previous bone fragments or avulsion fractions to his left wrist. Placed patient in Velcro wrist splint. Discharged home on p.o. [place]. E force records were reviewed okay for prescription. Patient was counseled importance of outpatient follow-up with orthopedics. He will be provided with on-call physician. Patient was given strict return to the emergency room guidelines. Return for any new or worsening symptoms. All questions were answered. Patient verbalized understanding and agrees with plan of care. - Vital Signs Vital signs: Temp Pulse Resp BP Pulse Ox 98.2 F 70 16 164/91 H 97 07/05/20 18:10 07/05/20 18:10 07/05/20 18:10 07/05/20 18:10 07/05/20 18:10 - Diagnostic Test Radiology reviewed: Reports reviewed Procedures - Immobilization Left Wrist Time completed: 21:40 Pre-Proc Neuro Vasc Exam: Normal Immobilizer type: Cock-up - velcro wrist splint Performed by: PCT Post-Proc Neuro Vasc Exam: Normal Alignment checked and good: Yes Discharge - Discharge Clinical Impression: Multiple contusions, Avulsion fracture of left wrist Neck injury Qualifiers: Encounter type: initial encounter Qualified Code(s): S19.9XXA - Unspecified injury of neck, initial encounter Condition: Stable Disposition: HOME, SELF-CARE Instructions: Avulsion Fracture ([facility]), Contusion ([facility]) Additional Instructions: Rest, ice left arm, elevate left wrist. Wear Velcro splint until seen by orthopedics. Call tomorrow for an outpatient follow-up appointment. Take medications as prescribed. Return to the emergency room for any new or worsening symptoms. Prescriptions: Hydrocodone/Acetaminophen [[place] 5-325 mg Tablet] 1 tab PO Q6H PRN #12 tablet PRN Reason: For Pain Referrals: LISANDRA WORTHINGTON MD [Primary Care Provider] - Follow up as needed JADON LUJAN DO [ACTIVE STAFF] - Follow up tomorrow (Call for an outpatient follow-up appointment.)
[2020-07-05 21:56] VITALS: BP 140/96
== END 2020-07-05 21:57 | disposition home or self-care (01) ==
LOC: ER 17:47
DX: S62.102A Fracture of unspecified carpal bone, left wrist, initial encounter for closed fracture (principal); S19.9XXA Unspecified injury of neck, initial encounter; T14.8XXA Other injury of unspecified body region, initial encounter; M54.2 Cervicalgia; W01.0XXA Fall on same level from slipping, tripping and stumbling without subsequent striking against object, initial encounter; Y92.009 Unspecified place in unspecified non-institutional (private) residence as the place of occurrence of the external cause; I10 Essential (primary) hypertension; F17.200 Nicotine dependence, unspecified, uncomplicated; Z87.828 Personal history of other (healed) physical injury and trauma
CPT/HCPCS: 72050; 99284